=== PATIENT | male | born 1925 | race Caucasian/White ===

== ENCOUNTER → 2016-10-10 | Day surgery (SDC) | payer OTHER ==
[~2016-10-10] MED LIST: ACETAMINOPHEN 1000 MG/100 ML VIAL IV ONE; BALANCED SALT SOLN OPHT IRRIG 15 ML BTL ONE; BUPIVACAINE/EPINEPHRINE 0.25% PF 10 ML VIAL ONE; CARV12.5 PO; CARV6.252 PO; CEFT500T3 PO; DORZ1SOL2 RIGHT EYE; DORZ2SOL RIGHT EYE; FLON0.053; FLUT50SP EACH NARE; FURO1TAB60 PO; HYDR12.56 PO; ICAPCAP PO; ICAPTAB PO; LACTATED RINGER'S 1000 ML INJ 1,000 ML ONE; LIDOCAINE 1%/EPINEPHrine 1:100,000 SOLN 20 ML VIAL ONE; LISI-515 PO; LISI-591 PO; MECL-62 PO; NEOMYCIN/POLYMYXIN/BACITRACIN OINT 15 GM TUBE ONE; OMEP20TA PO; POTA-88 PO; PROPOFOL 200 MG/20 ML AMP IV ONE; TEMA15CA PO; VANCOMYCIN 500 MG VIAL ONE; VITA100018 PO; VITA10003 PO
--- NOTE | 2016-10-10 13:38 | TN ---
cc: AYUSH CEJA M.D. DATE OF SURGERY 10/10/2016 PREOPERATIVE DIAGNOSIS Squamous cell carcinoma left jewish. POSTOPERATIVE DIAGNOSIS Squamous cell carcinoma left jewish. PROCEDURE Wide local excision resulting in a primary defect of 5 x 5-cm. The secondary defect is 5 x 12-cm. Reconstruction type tissue rearrangement. SURGEON Ayush Ceja MD ANESTHESIA LMA. I also utilized 20 cc of 1% lidocaine with epinephrine. ESTIMATED BLOOD LOSS Minimal. COMPLICATIONS None. PROCEDURE He was properly consented, marked properly, anesthetized, skin sterilized with Microcyn, sterile draping applied, local anesthetic infiltrated. Excision was done of this tumor including 0.5-cm margin throughout this area in the left jewish. It was sent to pathology for further analysis with a 12 o'clock suture. Defect is now 5 x 5 cm. With this I proceeded to perform the undermining from the lateral frontalis muscle and on the left side of the jewish/cheek at the preauricular area and elevated the tissue to cover the defect as a tissue rearrangement reconstruction, inset it utilizing 3-0 Monocryl suture and 5-0 fast-absorbing gut totaling 85cm. Overall good viability of the tissue was noted at the end of the case. For dressings I utilized Xeroform gauze, bacitracin ointment, 4x4s and netting. Good viability of tissue was noted of the end of the case. The patient was awakened and extubated in the operating room, transported back to the Post-Anesthesia Care Unit in stable condition. No complications appreciated. The patient tolerated the procedure fairly well. MD GLEN Evans/GATO /1:15 PM /1:31 PM DIANA
== END | disposition home or self-care (01) ==
LOC: ESDC 09:34
PROVIDERS: ATTEND Plastic Surgery
DX: C44.329 Squamous cell carcinoma of skin of other parts of face (principal)
CPT/HCPCS: 00300; 14301; 88305; J0131; J3010; J3370; J7120

== ENCOUNTER 2016-12-07 16:04 | Inpatient (IN) | payer OTHER, MEDICARE ==
[~2016-12-07] VITALS: Ht 175.3 cm; Wt 75.3 kg
[2016-12-07] VITALS (8 sets, daily range): BP systolic 120–187; BP diastolic 66–97; PULSE 75–101; RESP 16–20; TEMP 98–100.9; O2SAT 94–97
[~2016-12-07 16:04] MED LIST changes: -ACETAMINOPHEN 1000 MG/100 ML VIAL IV ONE; -BALANCED SALT SOLN OPHT IRRIG 15 ML BTL ONE; -BUPIVACAINE/EPINEPHRINE 0.25% PF 10 ML VIAL ONE; -CARV12.5 PO; -CARV6.252 PO; -CEFT500T3 PO; -DORZ2SOL RIGHT EYE; -FLUT50SP EACH NARE; -FURO1TAB60 PO; -ICAPTAB PO; -LACTATED RINGER'S 1000 ML INJ 1,000 ML ONE; -LIDOCAINE 1%/EPINEPHrine 1:100,000 SOLN 20 ML VIAL ONE; -LISI-515 PO; -MECL-62 PO; -NEOMYCIN/POLYMYXIN/BACITRACIN OINT 15 GM TUBE ONE; -OMEP20TA PO; -POTA-88 PO; -PROPOFOL 200 MG/20 ML AMP IV ONE; -TEMA15CA PO; -VANCOMYCIN 500 MG VIAL ONE; -VITA10003 PO
[2016-12-07] MEDS ORDERED: LEVOFLOXACIN 750 MG PREMIX INJ 150 ML IV STA (16:12)
[2016-12-07] MEDS ORDERED: IBUPROFEN 800 MG TAB PO ONE (16:15)
[2016-12-07] MEDS ORDERED: ONDANSETRON HCL 4 MG/2 ML VIAL IV PRN (16:15)
[2016-12-07] MEDS ORDERED: RESP: ALBUTEROL 2.5 MG/IPRATROPIUM 0.5 MG NEB (SCH) INH ONE (16:15)
--- NOTE | 2016-12-07 16:22 | PD ---
HPI Chief Complaint: prod cough for 3 days Time Seen by Provider: 16:07 Travel History International Travel<30 days: No Contact w/Intl Traveler<30days: No History of Present Illness HPI PATIENT HAS HAD PROD COUGH FOR 3 DAYS, PER DASH[facility] NOW FEBRILE, PT IS ON INDEPENDANT SIDE....DENIES FAIR/CP/ABD PAIN/N/V/D PFSH Past Medical History Arthritis: Yes Diminished Hearing: No Hypertension: Yes Past Surgical History Abdominal Surgery: Yes Cardiac Surgery: Yes Cholecystectomy: Yes Ear Surgery: No Endocrine Surgery: No Eye Surgery: Yes (MACULAR DEGENERATION) Genitourinary Surgery: No Gynecologic Surgery: No Joint Replacement: Yes (LEFT HIP) Thoracic Surgery: No Other Surgery: Yes (INGUINAL HERNIA REPAIR) Social History Alcohol Use: Yes (OCC) Tobacco Use: Yes Substance Use: No Allergies-Medications (Allergen,Severity, Reaction): Coded Allergies: Penicillin (Verified Allergy, Severe, bruised very easily,weight loss, 06/04) Reported Meds & Prescriptions Reported Meds & Active Scripts Active Reported Omeprazole 20 Mg Tab 20 Mg PO DAILY Dorzolamide Opth Drops (Dorzolamide HCl) 2% Soln 1 Drop RIGHT EYE BID Lasix (Furosemide) 40 Mg Tab 40 Mg PO DAILY Lisinopril 20 Mg Tab 20 Mg PO BID Vitamin D-3 (Cholecalciferol) 1,000 Unit Tab 1,000 Units PO DAILY Fluticasone Nasal [place] 50 Mcg/Act Naspr 50 Mcg EACH NARE DAILY 50 mcg/spray Klor-Con M10 (Potassium Chloride Microencaps) 10 Meq Tab 10 Meq PO THREE TIMES PER WEEK Review of Systems Except as stated in HPI: all other systems reviewed are Neg General / Constitutional: Positive: Fever, Chills Respiratory: Positive: Cough Physical Exam Narrative GENERAL: SKIN: Warm and dry. HEAD: Atraumatic. Normocephalic. EYES: Pupils equal and round. No scleral icterus. No injection or drainage. ENT: No nasal bleeding or discharge. Mucous membranes pink and moist. NECK: Trachea midline. No JVD. CARDIOVASCULAR: REGULAR RHYTHM, MILD TACHY, NO R/M/G RESPIRATORY: No accessory muscle use. RONCHI PRESENT, GOOD TV, PULSE OX 95 GASTROINTESTINAL: Abdomen soft, non-tender, nondistended. Hepatic and splenic margins not palpable. MUSCULOSKELETAL: Extremities without clubbing, cyanosis, or edema. No obvious deformities. NEUROLOGICAL: Awake and alert. No obvious cranial nerve deficits. Motor grossly within normal limits. Five out of 5 muscle strength in the arms and legs. Normal speech. PSYCHIATRIC: Appropriate mood and affect; insight and judgment normal. Data Data Orders Complete Blood Count With Diff (12/07/16 16:12) Comprehensive Metabolic Panel (12/07/16 16:12) Prothrombin Time / Inr (Pt) (12/07/16 16:12) Act Partial Throm Time (Ptt) (12/07/16 16:12) Lactic Acid Sepsis Protocol (12/07/16 16:12) Troponin I (12/07/16 16:12) Urinalysis - C+S If Indicated (12/07/16 16:12) Influenzae A/B Antigen (12/07/16 16:12) Blood Culture (12/07/16 16:12) Chest, Single Ap (12/07/16 16:12) Blood Glucose (12/07/16 16:12) Ecg Monitoring (12/07/16 16:12) Iv Access Insert/Monitor (12/07/16 16:12) Oximetry (12/07/16 16:12) Oxygen Administration (12/07/16 16:12) Levofloxacin 750 Mg Premix Inj (Levaquin (12/07/16 16:12) Albuterol-Ipratropium Neb (Duoneb Neb) (12/07/16 16:15) Ibuprofen (Motrin) (12/07/16 16:15) Ondansetron Inj (Zofran Inj) (12/07/16 16:15) Admit Order (Ed Use Only) (12/07/16 19:02) [facility] Medical Decision Making Medical Screen Exam Complete: Yes Emergency Medical Condition: Yes Medical Record Reviewed: Yes Differential Diagnosis SEPSIS SOURCE TO BE DETERMINED (UTI VS PNA) Narrative Course sirs criteria met, source likely to be pulmonary awaiting results, will admit for obs Sepsis Criteria SIRS Criteria (2 or more): Temp > 100.9 or < 96.8, Heart rate over 90 Criteria Outcome: Meets SIRS criteria Diagnosis Primary Impression: Community acquired pneumonia Admitting Information Admitting Physician Requests: Admit Scripts Cefuroxime (Ceftin)500 Mg [id number] Mg PO Q12HR #6 TAB Prov:Sebastien Avila MD 12/11/16 Carvedilol (Coreg)12.5 Mg Tab12.5 Mg PO BID #60 TAB Prov:Sebastien Avila MD 12/11/16 Preston Malagon MD December 07, 2016 16:22
--- NOTE | 2016-12-07 16:33 | RADRPT ---
EXAM DATE/TIME: 12/07/2016 16:20 [facility] COMPARISON: CHEST SINGLE AP, December 31, 2012, 12:20. INDICATIONS : Cough. flu like symptoms, short of breath. MEDICAL HISTORY : None. SURGICAL HISTORY : None. ENCOUNTER: Initial ACUITY: 1 day PAIN SCORE: 0/10 LOCATION: Bilateral chest FINDINGS: A single view of the chest demonstrates the lungs to be symmetrically aerated without evidence of mas s, or infiltrate. Small right-sided pleural effusion The cardiomediastinal contours are unremarkable . Osseous structures are intact. CONCLUSION: Normal examination except for small right-sided pleural effusion. Judah Bahena MD on December 07, 2016 at 16:31 Board Certified Radiologist. This report was verified electronically.
[2016-12-07 17:17] LABS: AUTOMATED NEUTROPHIL # 11.1 TH/MM3 (1.8-7.7); BASOPHIL % 0.3 % (0.0-2.0); HEMATOCRIT 35.2 % (39.0-51.0); HEMO FLAGS DIFF FINAL; LYMPHOCYTE # 0.5 TH/MM3 (1.0-4.8); MEAN CELL VOLUME 88.5 FL (80.0-100.0); MEAN CORPUSCULAR HEMOGLOBIN 29.9 PG (27.0-34.0); MEAN CORPUSCULAR HGB CONC 33.8 % (32.0-36.0); MONO % 4.7 % (0.0-8.0); PLATELET COUNT 117 TH/MM3 (150-450); RED BLOOD COUNT 3.98 MIL/MM3 (4.50-5.90); RED CELL DISTRIBUTION WIDTH 17.1 % (11.6-17.2); WHITE BLOOD COUNT 12.2 TH/MM3 (4.0-11.0)
[2016-12-07 17:21] LABS: INTERNATIONAL NORMALIZED RATIO 1.1 RATIO; PROTHROMBIN TIME - PATIENT 12.6 SEC (9.8-11.6)
[2016-12-07 17:32] LABS: ANION GAP 12 MEQ/L (5-15); AST (GOT) 24 U/L (15-37); BICARBONATE 24.2 MEQ/L (21.0-32.0); BLOOD UREA NITROGEN 40 MG/DL (7-18); CHLORIDE 108 MEQ/L (98-107); GLOMERULAR FILTRATION RATE 25 ML/MIN (>89); POTASSIUM 3.9 MEQ/L (3.5-5.1); SODIUM (NA) 144 MEQ/L (136-145)
[2016-12-07 17:37] LABS: ALKALINE PHOSPHATASE 104 U/L (45-117); ALT (GPT) 23 U/L (12-78); TOTAL BILIRUBIN ADULT 1.1 MG/DL (0.2-1.0)
[2016-12-07 18:28] LABS: BLOOD, URINE MOD (NEG); GLUCOSE,URINE NEG (NEG); KETONE, URINE NEG (NEG); MUCUS URINE FEW /lpf (OCC); NITRITE,URINE NEG (NEG); SQUAMOUS EPITHELIAL CELL URINE <1 /hpf (0-5); URINE COLOR YELLOW (YELLW/STRAW)
[2016-12-07 18:29] LABS: COMMENT (UR) CATH-CULT NOT IND; CULTURE IF INDICATED CATH CULTURE NOT IND
[2016-12-07] MEDS ORDERED: TEMA15CA PO (19:02)
[2016-12-07] MEDS ORDERED: CARV6.252 PO (19:04)
[2016-12-07] MEDS ORDERED: POTA-88 PO (19:04)
[2016-12-07] MEDS ORDERED: MECL-62 PO (19:04)
[2016-12-07] MEDS ORDERED: LISI-515 PO (19:08)
[2016-12-07] MEDS ORDERED: DORZ2SOL RIGHT EYE (19:08)
[2016-12-07] MEDS ORDERED: OMEP20TA PO (19:08)
[2016-12-07] MEDS ORDERED: VITA10003 PO (19:08)
[2016-12-07] MEDS ORDERED: FURO1TAB60 PO (19:08)
[2016-12-07] MEDS ORDERED: FLUT50SP EACH NARE (19:08)
[2016-12-07] MEDS ORDERED: SENNOSIDES 8.6 MG TAB PO PRN (19:30)
[2016-12-07] MEDS ORDERED: NALOXONE HCL 0.4 MG/ML AMP IV PRN (19:30)
[2016-12-07] MEDS ORDERED: ACETAMINOPHEN 325 MG TAB PO PRN (19:30)
[2016-12-07] MEDS ORDERED: ONDANSETRON HCL 4 MG/2 ML VIAL IVP PRN (19:30)
[2016-12-07] MEDS ORDERED: SODIUM CHLORIDE 0.9% FLUSH 10 ML FLUSH IV FLUSH PRN (19:30)
[2016-12-07] MEDS: SODIUM CHLORIDE 0.9% FLUSH 10 ML FLUSH IV FLUSH SCH (20:54)
--- NOTE | 2016-12-07 21:16 | HHI.HP ---
[facility] Korin Murdock MD Admission Diagnosis NONSTEMI/EARLY PNEUMONIA/RENAL INSUFFICIENCY Diagnoses: Travel History International Travel<30 Days: No Contact w/Intl Traveler <30 Da: No Traveled to Known Affected Are: No History of Present Illness History from patient, ER physician communication, and review of medical records. Patient reported that he came to the hospital because he just has not been eating for past 2 days. He states that he has no appetite. He reports that he was also having some trouble breathing but he cannot be sure. He states that when he came to emergency room, he was given nebulizer treatments and this helped. He stated this was the only time he was able to sleep after the nebulizer treatment in ER. He also reports of urinating all the time. He stated he was taking water pills. He states that he is taking water pill because there was one time that he came to the emergency room because of shortness of breath and upper and lower extremity swelling for which she was prescribed this water pill. After that, he states he was much better. Patient then reports of cough after eating food. He stated he has been having sore throat for the past 2 days. He states yesterday he just was not able to talk at all. He was also having some nosebleeds yesterday. However reports of chronic runny nose for which she had some surgery done for the sinuses years ago. He is standing, he still continues to have these sinus symptoms. He denies any nausea or vomiting. He also does not have any burning or pain on urination. He however does have constipation. He states he usually has good appetite. Patient denies any dizziness or syncopal episodes. He reports of a fall yesterday at nighttime twice. He states this happened because it was dark in the room and he pressed wrong button for some reason. He reports he has some bad knees and when she fell, he is not able to get up. No chest pains. He denies dizziness at present but reports prior history of it for which he takes meclizine when necessary. Review of Systems Except as stated in HPI: all other systems reviewed are Neg Past Family Social History Past Medical History htn hepatitis when he was discharged from service macular degeneration BPH Past Surgical History sinus sx left temporal skin ca removal back sx hip sx double hernia sx cholecystectomy Allergies: Coded Allergies: Penicillin (Verified Allergy, Severe, bruised very easily,weight loss, 06/04) Family History mom and sister- macular degeneration brother - leukemia Social History still drives no drinking/ no smoking/ no etoh HALFWAY for 3 months due to Physical Exam Vital Signs Vital Signs Date Time Temp Pulse Resp B/P Pulse Ox O2 Delivery O2 Flow Rate FiO2 12/07/16 19:02 84 17 94 Room Air 12/07/16 18:59 98.5 90 17 120/66 94 Room Air 12/07/16 18:24 99.1 90 16 171/94 96 Room Air 12/07/16 17:35 94 21 12/07/16 17:33 97 Room Air 12/07/16 17:27 93 16 182/88 97 12/07/16 16:30 75 187/82 97 Room Air 12/07/16 16:30 97 Room Air 12/07/16 16:30 97 Room Air 12/07/16 16:17 100.9 101 16 180/97 Physical Exam GENERAL: This is a well-nourished, well-developed patient, in no apparent distress. SKIN: No rashes, ecchymoses or lesions. Cool and dry. HEAD: Atraumatic. Normocephalic. No temporal or scalp tenderness. EYES: No scleral icterus. No injection or drainage. ENT: Nose without bleeding, purulent drainage or septal hematoma. Airway patent. NECK: Trachea midline. No JVD CARDIOVASCULAR: Regular rate and rhythm without murmurs, gallops, or rubs. RESPIRATORY: Clear to auscultation. Breath sounds equal bilaterally. No wheezes , rales, or rhonchi. GASTROINTESTINAL: Abdomen soft, non-tender, nondistended. No guarding. MUSCULOSKELETAL: Extremities without clubbing, cyanosis, or edema. No calf tenderness. NEUROLOGICAL: Awake and alert.Motor and sensory grossly within normal limits. . Normal speech. Laboratory Laboratory Tests Test 12/07/16 12/07/16 16:50 18:10 White Blood Count 12.2 Red Blood Count 3.98 Hemoglobin 11.9 Hematocrit 35.2 Mean Corpuscular Volume 88.5 Mean Corpuscular Hemoglobin 29.9 Mean Corpuscular Hemoglobin 33.8 Concent Red Cell Distribution Width 17.1 Platelet Count 117 Mean Platelet Volume 8.1 Neutrophils (%) (Auto) 91.0 Lymphocytes (%) (Auto) 4.0 Monocytes (%) (Auto) 4.7 Eosinophils (%) (Auto) 0.0 Basophils (%) (Auto) 0.3 Neutrophils # (Auto) 11.1 Lymphocytes # (Auto) 0.5 Monocytes # (Auto) 0.6 Eosinophils # (Auto) 0.0 Basophils # (Auto) 0.0 CBC Comment DIFF FINAL Differential Comment Prothrombin Time 12.6 Prothromb Time International 1.1 Ratio Activated Partial 32.0 Thromboplast Time Sodium Level 144 Potassium Level 3.9 Chloride Level 108 Carbon Dioxide Level 24.2 Anion Gap 12 Blood Urea Nitrogen 40 Creatinine 2.41 Estimat Glomerular Filtration 25 Rate Random Glucose 149 Lactic Acid Level 1.8 Calcium Level 8.6 Total Bilirubin 1.1 Aspartate Amino Transf 24 (AST/SGOT) Alanine Aminotransferase 23 (ALT/SGPT) Alkaline Phosphatase 104 Troponin I 0.31 Total Protein 6.4 Albumin 3.3 Urine Color YELLOW Urine Turbidity CLEAR Urine pH 6.0 Urine Specific [place] 1.016 Urine Protein 300 Urine Glucose (UA) NEG Urine Ketones NEG Urine Occult Blood MOD Urine Nitrite NEG Urine Bilirubin NEG Urine Urobilinogen LESS THAN 2.0 Urine Leukocyte Esterase NEG Urine RBC 18 Urine WBC LESS THAN 1 Urine Squamous Epithelial <1 Cells Urine Mucus FEW Microscopic Urinalysis Comment CATH-CULT NOT IND Date/Time Procedure Status Source Growth 12/07/16 17:05 Aerobic Blood Culture Received Blood Peripheral Pending 12/07/16 17:05 Anaerobic Blood Culture Received Blood Peripheral Pending 12/07/16 16:51 Influenza Types A,B Antigen (ALEX) - Final Complete Nasal Aspirate NEGATIVE FOR FLU A AND B ANTIGEN.... Result Diagram: 12/07/16 1650 12/07/16 1650 Imaging Last 48 hours Impressions Chest X-Ray 12/07/16 1612 Signed Impressions: Service Date/Time: November 16:20 - CONCLUSION: Normal examination except for small right-sided pleural effusion. Judah Bahena MD Assessment and Plan Assessment and Plan Impression: Nonspecific complaints of malaise/cough/sore throatetiology unclear. Likely upper airway infection. Fever of 102 her assisted living facility notes. Does have fever of 100.9 here. Acute on chronic kidney injurysecondary to dehydration Elevated troponinno complaints of chest pains. We'll rule out. Also could be related to renal dysfunction. Thrombocytopenia htn hepatitis when he was discharged from service macular degeneration BPH Plan: Patient had influenza test done which was negative. Chest x-raypersonally reviewed. No evidence of infiltrates/pneumothorax/ pleural effusion. Also would check for strep antigen. Empiric coverage with antibiotics for CAP IV hydration. We'll follow renal function. Serial cardiac enzymes and EKGs. Patient's troponin elevation is likely due to renal insufficiency. Patient does not have any chest pains or dyspnea on exertion. dVT prophylaxis with scd Discussed Condition With patient, ER MD, patient's nurse Brittnai Uribe MD December 07, 2016 21:16
[2016-12-08] VITALS (7 sets, daily range): BP systolic 112–190; BP diastolic 58–102; PULSE 73–95; RESP 16–20; TEMP 97.6–98.4; O2SAT 93–98
[2016-12-08 05:50] LABS: AUTOMATED NEUTROPHIL # 6.2 TH/MM3 (1.8-7.7); BASOPHIL # 0.1 TH/MM3 (0-0.2); EOSINOPHIL % 0.5 % (0.0-4.0); HEMATOCRIT 31.2 % (39.0-51.0); LYMPH % 13.4 % (9.0-44.0); LYMPHOCYTE # 1.1 TH/MM3 (1.0-4.8); MEAN CORPUSCULAR HEMOGLOBIN 30.8 PG (27.0-34.0); MEAN CORPUSCULAR HGB CONC 34.6 % (32.0-36.0); MONO % 11.9 % (0.0-8.0); NEUT % 73.2 % (16.0-70.0); PLATELET COUNT 93 TH/MM3 (150-450); RED CELL DISTRIBUTION WIDTH 17.4 % (11.6-17.2); WHITE BLOOD COUNT 8.5 TH/MM3 (4.0-11.0)
[2016-12-08 05:54] LABS: HEMO FLAGS AUTO DIFF
[2016-12-08 06:29] LABS: BICARBONATE 25.3 MEQ/L (21.0-32.0)
[2016-12-08 07:00] LABS: PLATELET ESTIMATE SMEAR LOW (NORMAL); PLATELET MORPHOLOGY NORMAL (NORMAL); SCAN/DIFF AUTO DIFF CONFIRMED
[2016-12-08] MEDS: AZITHROMYCIN 250 MG TAB PO SCH (08:43)
[2016-12-08] MEDS: cefTRIAXone INJ 1,000 MG in SODIUM CHLORIDE 0.9% INJ 100 ML IV SCH (08:43)
[2016-12-08] MEDS: SODIUM CHLORIDE 0.9% FLUSH 10 ML FLUSH IV FLUSH SCH ×2 (08:54→20:42)
--- NOTE | 2016-12-08 16:49 | RADRPT ---
EXAM DATE/TIME: 12/08/2016 15:37 [facility] COMPARISON: No previous studies available for comparison. INDICATIONS : Abnormal labs. MEDICAL HISTORY : Macular degeneration. Hypertension. Arthritis. Hepatitis. SURGICAL HISTORY : Cholecystectomy. Eye surgery. Ateriovenous shunt. Pacemaker. Back surgery. Left total hip replace ment. Inguinal hernia repair. ENCOUNTER: Initial ACUITY: 1 day PAIN SCORE: 1/10 LOCATION: Bilateral flank MEASUREMENTS: RIGHT KIDNEY: 9.6 x 5.0 x 5.8 cm LEFT KIDNEY: 10.4 x 6.0 x 6.2 cm FINDINGS: The kidneys demonstrates increased echogenicity of the cortex compatible with medical renal disease. There is mild dilatation of the renal pelvis bilaterally. The prostate gland is markedly enlarged imp inging on the bladder base. CONCLUSION: 1. Prostate enlargement with minimal bilateral hydronephrosis. Echogenic kidneys bilaterally compatible with medical renal disease. Bob Diaz MD on December 08, 2016 at 16:46 Board Certified Radiologist. This report was verified electronically.
--- NOTE | 2016-12-08 17:26 | MB ---
cc: LITZY HARRISON MD DATE OF CONSULTATION: 12/08/2016 REASON FOR CONSULTATION: Elevated BUN and creatinine for evaluation. HISTORY OF PRESENT ILLNESS This is a 89-year-old male with past medical history of hypertension. Ischemic heart disease, benign prostatic hypertrophy, history of hepatitis, chronic kidney disease, came to the hospital with complaint of not eating well, generalized weakness, shortness of breath. Pain increased swelling of the legs. I was called to see the patient for elevated BUN and creatinine. The patient was found to have BUN of 14, creatinine of 2.4 on admission and it has been almost same. He previously has creatinine of 1.5-1.8 this was in 2012 and 2006. The patient denies seeing any filter press tender head he was seen by a urologist in the past and according to him he had Saenz catheter for some time it was more than 10 years ago. Then his urination improved and he has been without Saenz catheter. The patient has been feeling weak and tired for the last few days not eating well for last three 4 days has increased swelling of the legs. There is nausea but he has no vomiting. There is no history of diarrhea. No dysuria or hematuria but he has increased urinary frequency and sometime incontinence. Denies any dysuria, hematuria. Here in the hospital the patient was found to have also increased troponin from 0.3 to 0.4. He does not have any chest pain. PAST MEDICAL HISTORY: 1. Hypertension 2. Ischemic heart disease. 3. Hepatitis 4. Benign prostatic hypertrophy 5. Chronic kidney disease. PAST SURGICAL HISTORY 1. Cholecystectomy. 2. History of hip surgery 3. Back surgery. 4. Skin cancer removal 5. Bilateral hernia surgery 6. Sinus surgery. REVIEW OF SYSTEMS The patient has generalized weakness, feeling tired. He has decreased appetite, nausea. There is no vomiting has shortness of breath off and on. Has increased swelling of the legs. No abdominal pain. No history of diarrhea. There any chest pain. No palpitation. No dysuria, hematuria the patient occasionally has urinary incontinence and increased urinary frequency. SOCIAL HISTORY The patient is . is a nursing facility and he is also a living in a nursing facility. There is no history of smoking or alcoholism. FAMILY HISTORY: Family history is noncontributory. ALLERGIES PENICILLIN. MEDICATIONS Currently 1. Azithromycin 250 mg once a day. 2. Ceftriaxone 1 gram q. 24-hour. 3. Zofran as needed. 4. Narcan as needed. 5. He was given one dose of Ibuprofen. PHYSICAL EXAMINATION: IN GENERAL: On examination the patient is awake, alert. He is not in acute distress. VITAL SIGNS: Blood pressure is 141/76 temperature is 97.7, oxygen saturation 96-97% on room air. HEAD, EYES, EARS, NOSE, AND THROAT: Equally reacting to light. Nonicteric sclera, conjunctiva pale. NECK: Supple. The jugular venous distention is not elevated. LUNGS: The patient has bilateral good air entry with occasional wheezing and basilar rales. HEART: S1, S2, regular rhythm. ABDOMEN: The abdomen is soft lax. There is no tenderness. EXTREMITIES: He has mild edema in the legs. INVESTIGATIONS: WBC count is 8.5, hemoglobin 10.8, platelet count of 93, neutrophils 73.2%, sodium to 44. Potassium 4.0, chloride 109, bicarb 25.3, BUN 46, creatinine 2.59. Calcium 8.2. Troponin I 0.45, Aspartate aminotransferase and ALT normal, alkaline phosphatase 104, total protein 6.4. Albumin is 3.3, INR 1.1. Urinalysis showing protein of 300. Urine sodium is 39 and creatinine is 103. Cultures are all negative so far. IMAGING STUDIES The patient has ultrasound of the kidneys was done the report is pending. Chest x-ray Was done on admission and it shows a small right-sided pleural effusion. ASSESSMENT/PLAN 1. Chronic kidney disease with some possible acute kidney injury. 2. Ischemic heart disease and elevated troponins. 3. Hypertension. 4. Anemia. 5. History of benign prostatic hypertrophy. 6. The patient has elevated BUN and creatinine from before now he also has proteinuria and some hematuria. The patient will need to be seen by the urology for that. 7. In the meantime at present I will get the bladder scan postvoid to see if he has any significant postvoid residual then he will need a Saenz catheter. 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 8. I will also check the SAMI, ANCA and also serum protein electrophoresis and phosphorus level and CPK to look for any other cause of his renal disease. 9. Avoid any nephrotoxins especially nonsteroidal anti-inflammatory drug and contrast. Thank you for the consultation and I will follow the patient while he is in the hospital MD Brett Pool /4:04 PM /5:10 PM
[2016-12-08] MEDS: DORZOLAMIDE 2% OPTH SOLN 200 DROP/10 ML BTLO RIGHT EYE SCH (23:00)
[2016-12-08] MEDS: CARVEDILOL 6.25 MG TAB PO SCH (23:20)
--- NOTE | 2016-12-08 23:31 | HHI.PR ---
Subjective Remarks Patient seen this morning. Patient denies any chest pain or shortness of breath. He does report chronic worsening fatigue. He reports worsening of urinary retention, inability to completely empty his bladder. Objective Vital Signs Date Time Temp Pulse Resp B/P Pulse Ox O2 Delivery O2 Flow Rate FiO2 12/08/16 16:00 97.6 95 18 150/80 96 12/08/16 12:00 97.7 73 18 141/76 97 12/08/16 10:30 Room Air 12/08/16 08:00 97.6 76 18 141/75 96 12/08/16 04:00 98.2 75 20 125/70 98 12/08/16 00:00 98.4 75 16 112/58 93 I/O 12/07/16 12/07/16 12/07/16 12/08/16 12/08/16 12/08/16 07:00 15:00 23:00 07:00 15:00 23:00 Intake Total 120 ml 240 ml 540 ml Output Total 125 ml 300 ml Balance 120 ml 115 ml 240 ml Intake Oral 120 ml 240 ml 440 ml IV Total 100 ml Output Urine Total 125 ml 300 ml Bladder Scan Volume Amount 291 ml # Bowel Movements 1 Result Diagram: 12/08/1652312/08/16523 Objective Remarks GENERAL: patient lying in bed. Appears comfortable but fatigued.he is oriented 3. SKIN: Warm and dry. HEAD: Normocephalic. EYES: No scleral icterus. No injection or drainage. NECK: Supple, trachea midline. No JVD. CARDIOVASCULAR: Regular rate and rhythm without murmurs, gallops, or rubs. RESPIRATORY: Breath sounds equal bilaterally. No accessory muscle use. GASTROINTESTINAL: Abdomen soft, non-tender, nondistended. MUSCULOSKELETAL: No cyanosis, or edema. BACK: Nontender without obvious deformity. No CVA tenderness. A/P Assessment and Plan //Possible severe Sepsis on admission -Fever 100.9, tachycardia 101, leukocytosis 12.2 on admission, as well as chest x-ray with Small pleural effusion. Suspected JOSE EDUARDO. Creatinine 2.4 from baseline 1.5 -Continues on antibiotics. Negative strep, negative influenza. blood cultures no growth today. -Continue antibiotics ceftriaxone and Levaquin //Generalized malaise -could be secondary to sepsis, kidney failure.. TSH ordered and pending. //JOSE EDUARDO on CKD 3 //Urinary retention. Acute on chronic. Mild bilateral hydronephrosis. History of urinary obstruction, bph. Saenz placed. Nephrology consult and appreciate assistance. We'll monitor kidney function, patient will need follow-up urology as outpatient. -Saenz in place. creatinine not improving, however Saenz just placed 12/08. Continue to monitor urine output, creatinine.serology following. Appreciate assistance. //Community acquired pneumonia. //small pleural effusion which could be related to pneumonia, CHF. Will add BNP. If BnP elevated, will need echocardiogram. If CHF, this could be secondary to urinary retention. Follow-up results. //Elevated troponin, although patient is without chest pain. Uncertain why this was checked This could be secondary to CHF. //Elevated troponin. Without any chest pain. Possibly related to sepsis. //Prophylaxis. SCDs. Riki Sargent MD December 08, 2016 23:31
[2016-12-09] VITALS (7 sets, daily range): BP systolic 142–185; BP diastolic 67–94; PULSE 71–89; RESP 20; TEMP 97.8–98.7; O2SAT 94–98
[2016-12-09 07:43] LABS: BICARBONATE 21.4 MEQ/L (21.0-32.0); POTASSIUM 3.9 MEQ/L (3.5-5.1)
[2016-12-09 07:52] LABS: TOTAL PROTEIN SPE 6.4 GM/DL (6.0-7.6)
[2016-12-09] MEDS: FLUTICASONE PROPIONATE 50 MCG/ACT 16 GM NASAL SPRAY EACH NARE SCH (09:00)
[2016-12-09] MEDS: SODIUM CHLORIDE 0.9% FLUSH 10 ML FLUSH IV FLUSH SCH ×2 (09:02→21:32)
[2016-12-09] MEDS: DORZOLAMIDE 2% OPTH SOLN 200 DROP/10 ML BTLO RIGHT EYE SCH ×2 (09:02→21:33)
[2016-12-09] MEDS: cefTRIAXone INJ 1,000 MG in SODIUM CHLORIDE 0.9% INJ 100 ML IV SCH (09:02)
[2016-12-09] MEDS: CARVEDILOL 6.25 MG TAB PO SCH ×2 (09:03→21:32)
[2016-12-09] MEDS: AZITHROMYCIN 250 MG TAB PO SCH (09:03)
[2016-12-09] MEDS ORDERED: PNEUMOCOCCAL POLYVALENT INJ 25 MCG/0.5 ML SYR IM ONE (10:00)
--- NOTE | 2016-12-09 12:18 | HHI.NPPN ---
Subjective History of Present Illness 11-year-old male with past medical history of hypertension. Ischemic heart disease, benign prostatic hypertrophy, history of hepatitis, chronic kidney disease, came to the hospital with complaint of not eating well, generalized weakness, shortness of breath. Pain increased swelling of the legs. I was called to see the patient for elevated BUN and creatinine. The patient was found to have BUN of 14, creatinine of 2.4 on admission and it has been almost same. He previously has creatinine of 1.5-1.8 this was in 2012 and 2006. Additional Remarks Patient is alert, feeling weak, not eating well. Review of Systems General Constitutional: Fatigue Respiratory Lungs: SOB Cardiovascular Cardiac: RICHTER Objective Data Data 12/08/16 12/09/16 19:00 07:00 Intake Total 540 ml 940 ml Output Total 300 ml 775 ml Balance 240 ml 165 ml Intake Oral 440 ml 940 ml IV Total 100 ml Output Urine Total 300 ml 775 ml Bladder Scan Volume Amount 291 ml # Bowel Movements 1 0 Vital Signs Date Time Temp Pulse Resp B/P Pulse Ox O2 Delivery O2 Flow Rate FiO2 12/09/16 11:50 97.8 71 20 155/94 98 12/09/16 08:45 Room Air 12/09/16 07:50 98.0 82 20 152/82 94 12/09/16 07:47 77 12/09/16 04:09 Room Air 12/09/16 04:00 98.4 79 20 158/80 95 12/09/16 00:05 98.7 89 20 97 12/09/16 00:00 Room Air 12/08/16 22:30 170/86 12/08/16 20:40 Room Air 12/08/16 20:00 98.3 95 20 190/102 98 12/08/16 20:00 88 12/08/16 16:00 97.6 95 18 150/80 96 -: 12/08/16 0524 12/09/16 0652 Physical Exam General Appearance: No Acute Distress, Comfortable Eyes Eye Exam: Pupils Equal Throat Throat Exam: Oral Mucosa [place] & Moist Neck Neck Exam: Neck Supple Pulmonary Resp Exam: No Distress, Crackles, Rhonchi, Decreased Bases, Diminished Breath Sounds Cardiology CV Exam: Regular, Normal Sinus Rhythm Gastrointestinal/Abdomen GI Exam: Soft, Non-Tender, Bowel Sounds Present, Distended Neurologic Neuro Exam: Alert, Awake, Oriented Psychiatric Psych Exam: Appropriate Responses Assessment/Plan Assessment Summary: JOSE EDUARDO/Acute Renal Failure, CKD Stage IV Problem List: (1) Sepsis (2) Community acquired pneumonia (3) Elevated troponin (4) JOSE EDUARDO (acute kidney injury) (5) Stage 4 chronic kidney disease Plan Patient has been non oliguric. US kidneys noted. Now has Saenz's catheter. Urine out put is adequate. Continue antibiotics. Most likely has chronic kidney disease, due to Hypertensive or renovascular disease. Avoid Nephrotoxins. German Cabello MD December 09, 2016 12:18
--- NOTE | 2016-12-09 12:44 | HHI.PR ---
Subjective Remarks Patient seen for follow up sepsis, PNA, JOSE EDUARDO. 12/09/16-patient seen this AM. No acute events overnight. SBP in the 150s. Other vitals WNL. Objective Vitals Vital Signs Date Time Temp Pulse Resp B/P Pulse Ox O2 Delivery O2 Flow Rate FiO2 12/09/16 11:50 97.8 71 20 155/94 98 12/09/16 08:45 Room Air 12/09/16 07:50 98.0 82 20 152/82 94 12/09/16 07:47 77 12/09/16 04:09 Room Air 12/09/16 04:00 98.4 79 20 158/80 95 12/09/16 00:05 98.7 89 20 97 12/09/16 00:00 Room Air 12/08/16 22:30 170/86 12/08/16 20:40 Room Air 12/08/16 20:00 98.3 95 20 190/102 98 12/08/16 20:00 88 12/08/16 16:00 97.6 95 18 150/80 96 I/O 12/08/16 12/08/16 12/08/16 12/09/16 12/09/16 12/09/16 07:00 15:00 23:00 07:00 15:00 23:00 Intake Total 240 ml 540 ml 220 ml 720 ml Output Total 125 ml 300 ml 400 ml 375 ml Balance 115 ml 240 ml -180 ml 345 ml Intake Oral 240 ml 440 ml 220 ml 720 ml IV Total 100 ml Output Urine Total 125 ml 300 ml 400 ml 375 ml Bladder Scan Volume Amount 291 ml # Bowel Movements 1 0 0 Result Diagram: 12/08/16 0524 12/09/16 0652 Objective Remarks GENERAL: patient lying in bed. Appears comfortable but fatigued.he is oriented 3. SKIN: Warm and dry. HEAD: Normocephalic. EYES: No scleral icterus. No injection or drainage. NECK: Supple, trachea midline. No JVD. CARDIOVASCULAR: Regular rate and rhythm without murmurs, gallops, or rubs. RESPIRATORY: Breath sounds equal bilaterally. No accessory muscle use. Faint rales at right lung base. GASTROINTESTINAL: Abdomen soft, non-tender, nondistended. MUSCULOSKELETAL: No cyanosis. +1 pitting edema in LEs bilaterally. BACK: Nontender without obvious deformity. No CVA tenderness. A/P Problem List: (1) Sepsis ICD Code: A41.9 Status: Acute (2) Community acquired pneumonia ICD Code: J18.9 Status: Acute (3) Malaise ICD Code: R53.81 Status: Acute (4) JOSE EDUARDO (acute kidney injury) ICD Code: N17.9 Status: Acute (5) Elevated troponin ICD Code: R74.8 Status: Acute (6) Positive blood culture ICD Code: R78.81 Status: Acute Assessment and Plan //Possible severe Sepsis on admission -Fever 100.9, tachycardia 101, leukocytosis 12.2 on admission, as well as chest x-ray with Small pleural effusion. Lactic acid 1.8. -Continues on rocephin and azithromycin. Negative strep, negative influenza. -blood cultures + for coag neg staph in 1/ tubes. Likely contaminant. Will repeat. I am hesitant to add vancomycin, given potential for nephrotoxicity. Will consult ID. //Community acquired pneumonia. -small pleural effusion which could be related to pneumonia, CHF. BNP in the 800s. Will check 2D echo along with repeat CXR today and give lasix 40 mg IV x1 if worsening pleural effusion. -cont rocephin + azithromycin. -check sputum cx //JOSE EDUARDO on CKD 3 //Urinary retention. Acute on chronic. Mild bilateral hydronephrosis. History of urinary obstruction, bph. Saenz placed. Nephrology consult and appreciate assistance. We'll monitor kidney function, patient will need follow-up urology as outpatient. -Saenz in place. creatinine not improving, however Saenz just placed 12/08. Continue to monitor urine output, creatinine.serology following. Appreciate assistance. //Generalized malaise -could be secondary to sepsis, kidney failure.. TSH WNL. //Elevated troponin -although patient is without chest pain. Uncertain why this was checked This could be secondary to CHF. //Prophylaxis -SCDs. Problem Qualifiers (1) Sepsis: Qualified Code: A41.9 - Sepsis, due to unspecified organism Lc Barrientos MD R3 December 09, 2016 12:44
[2016-12-09] MEDS ORDERED: Vancomycin Consult Pharmacy 1 EA OTHER SCH (14:00)
[2016-12-09] MEDS ORDERED: VANCOMYCIN INJ 1,500 MG in SODIUM CHLORID 0.9% 500 ML INJ 500 ML IV SCH (14:00)
--- NOTE | 2016-12-09 14:39 | RADRPT ---
EXAM DATE/TIME: 12/09/2016 14:15 [facility] COMPARISON: CHEST SINGLE AP, December 07, 2016, 16:20. INDICATIONS : Shortness of breath, cough, and congestion. MEDICAL HISTORY : Hypertension. SURGICAL HISTORY : Cholecystectomy. ENCOUNTER: Subsequent ACUITY: 2 days PAIN SCORE: 0/10 LOCATION: Bilateral chest FINDINGS: Single AP view of the chest. Right-sided pleural effusion unchanged. Persistent right lower lobe pulm onary consolidation. No evidence of pneumothorax. Cardiomediastinal silhouette unchanged. CONCLUSION: No change in right lower lobe pulmonary consolidation and right pleural effusion. Krishan Lauren MD on December 09, 2016 at 14:37 Board Certified Radiologist. This report was verified electronically.
--- NOTE | 2016-12-09 16:08 | HHI.FPPN ---
Addendum to progress note ADDENDUM Reason for addendum: Additonal documentation Additional information Called by nursing regarding 8 beat run of Vtach. Patient reportedly asymptomatic. Per nursing, appears slower than typical for Vtach. Will order 12- lead EKG for now. Further workup if sustained VT or if patient is symptomatic. Lc Barrientos MD R3 December 09, 2016 16:08
[2016-12-10] VITALS (7 sets, daily range): BP systolic 142–198; BP diastolic 71–91; PULSE 63–87; RESP 18–20; TEMP 97.3–98.7; O2SAT 94–98
--- NOTE | 2016-12-10 07:28 | HHI.PR ---
Subjective Remarks Patient seen and examined this am. Nurse reports 9 beat run of V-Tach, patient asymptomatic. Had an 8 beat run yesterday, patient again asymptomatic. EKG was ordered that showed, which was normal rate, narrow QRS, no ST or T wave abnormalities. Overall improved from previous. He states his appetite is poor. Is supposed to see a pan cleaner but is unsure of the name. He states he has been unable to walk as far because [place] believes [place] 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 He denies current CP but states he doesn't feel right. Has a cough, is worse at night. Objective Vital Signs Date Time Temp Pulse Resp B/P Pulse Ox O2 Delivery O2 Flow Rate FiO2 12/10/16 06:00 97.8 71 20 185/85 98 12/10/16 04:04 Room Air 12/10/16 00:00 98.1 72 18 142/71 96 12/10/16 00:00 Room Air 12/09/16 20:00 Room Air 12/09/16 20:00 98.0 84 20 185/87 95 12/09/16 20:00 82 12/09/16 15:50 97.9 74 20 142/67 96 12/09/16 11:50 97.8 71 20 155/94 98 12/09/16 08:45 Room Air 12/09/16 07:50 98.0 82 20 152/82 94 12/09/16 07:47 77 I/O 12/09/16 12/09/16 12/09/16 12/10/16 12/10/16 12/10/16 07:00 15:00 23:00 07:00 15:00 23:00 Intake Total 720 ml 402 ml 240 ml Output Total 375 ml 550 ml 350 ml 350 ml Balance 345 ml -148 ml -110 ml -350 ml Intake Oral 720 ml 300 ml 240 ml IV Total 102 ml Output Urine Total 375 ml 550 ml 350 ml 350 ml # Bowel Movements 0 0 2 Result Diagram: 12/08/16 0524 12/09/16 0652 Imaging Last Impressions Chest X-Ray 12/09/16 0000 Signed Impressions: Service Date/Time: Friday, December 09, 2016 14:15 - CONCLUSION: No change in right lower lobe pulmonary consolidation and right pleural effusion. Krishan Lauren MD Renal Ultrasound 12/08/16 0000 Signed Impressions: Service Date/Time: Thursday, December 08, 2016 15:37 - CONCLUSION: 1. Prostate enlargement with minimal bilateral hydronephrosis. Echogenic kidneys bilaterally compatible with medical renal disease. Bob Diaz MD Other Results GENERAL: patient lying in bed. Appears comfortable. SKIN: Warm and dry. HEAD: Normocephalic. EYES: No scleral icterus. No injection or drainage. NECK: Supple, trachea midline. No JVD. CARDIOVASCULAR: Regular rate with irregular rhythm without murmurs, gallops, or rubs. RESPIRATORY: Breath sounds equal bilaterally. No accessory muscle use. Faint rales at right lung base. GASTROINTESTINAL: Abdomen soft, non-tender, nondistended. MUSCULOSKELETAL: No cyanosis. +1 pitting edema in LEs bilaterally. BACK: Nontender without obvious deformity. No CVA tenderness. A/P Problem List: (1) Sepsis ICD Code: A41.9 (2) Community acquired pneumonia ICD Code: J18.9 (3) JOSE EDUARDO (acute kidney injury) ICD Code: N17.9 (4) Heart failure ICD Code: I50.9 Assessment and Plan // Sepsis on admission, source lung - Improving. - Cont azithro (12/08-12/14) & ceftin (12/10-12/14) (per ID) - S/P rocephin 12/08-12/10 - Negative strep, negative influenza. -blood cultures + for coag neg staph in 1/4 tubes. Likely contaminant. Repeat cultures negative //Community acquired pneumonia. -small pleural effusion which could be related to pneumonia, CHF. BNP in the 800s. Will check 2D echo along with repeat CXR today and give lasix 40 mg IV x1 if worsening pleural effusion. -check sputum cx, pending //JOSE EDUARDO on CKD 3 //Urinary retention. Acute on chronic. Mild bilateral hydronephrosis. History of urinary obstruction, bph. Saenz placed. Nephrology consult and appreciate assistance. We'll monitor kidney function, patient will need follow-up urology as outpatient. -Saenz in place. creatinine not improving, however Saenz just placed 12/08. Continue to monitor urine output, nephrology following. Appreciate assistance. //Generalized malaise -could be secondary to sepsis, kidney failure.. TSH WNL. //Elevated troponin -although patient is without chest pain. Uncertain why this was checked, this could be secondary to CHF. //Systolic Heart Fail - BNP elevated - ECHO: moderate LVH, EF 35-40% - Currently on beta óscar, ACEI on hold for worsening renal insufficiency //HTN - Coreg increased to 12.5 mg BID - if continues to be elevated consider adding Norvasc - May consider lisinopril if renal function improves - Clonidine prn //Prophylaxis -SCDs. Discharge Planning D/C home pending negative blood cultures x 48 hrs and cardiology eval. Problem Qualifiers (1) Sepsis: Qualified Code: A41.9 - Sepsis, due to unspecified organism Nataliia Escobar MD R3 December 10, 2016 07:28
--- NOTE | 2016-12-10 07:46 | EC ---
Study Study Date:12/09/2016 STUDY CONCLUSIONS SUMMARY - Left ventricle: The cavity size was mildly dilated. Wall thickness was increased in a pattern of moderate LVH. Systolic function was moderately reduced. The estimated ejection fraction was in the range of 35% to 40%. Wall motion was normal; there were no regional wall motion abnormalities. - Aortic valve: Mild regurgitation. Valve area: 1.92cm^2 (Vmax). If LV function is below 40, please consider prescribing an ACEI or ARB or document rationale for non-use. PROCEDURE DATA STUDY STATUS: Elective. Procedure: Transthoracic echocardiography. Image quality was good. Scanning was performed from the parasternal, apical, and subcostal acoustic windows. Study completion: The patient tolerated the procedure well. Transthoracic echocardiography. M-mode, complete 2D, complete spectral Doppler, and color Doppler. Height: Height: 69in. Weight: Weight: 164.7lb. Body mass index: BMI: 24.4kg/m^2. Body surface area: BSA: 1.9m^2. Patient status: Inpatient. CARDIAC ANATOMY LEFT VENTRICLE: The cavity size was mildly dilated. Wall thickness was increased in a pattern of moderate LVH. Systolic function was moderately reduced. The estimated ejection fraction was in the range of 35% to 40%. Wall motion was normal; there were no regional wall motion abnormalities. AORTIC VALVE: Trileaflet; normal thickness leaflets. Doppler: Transvalvular velocity was within the normal range. There was no stenosis. Mild regurgitation. Valve area: 1.92cm^2 (Vmax). Indexed valve area: 1.01cm^2/m^2 (Vmax). AORTA: Aortic root: The aortic root was normal in size. MITRAL VALVE: Structurally normal valve. Doppler: Transvalvular velocity was within the normal range. There was no evidence for stenosis. No regurgitation. Valve area by pressure half-time: 5.64cm^2. Indexed valve area by pressure half-time: 2.97cm^2/m^2. Peak gradient: 3mm Hg (D). LEFT ATRIUM: The atrium was normal in size. RIGHT VENTRICLE: The cavity size was normal. Wall thickness was normal. PULMONIC VALVE: Doppler: Transvalvular velocity was within the normal range. There was no evidence for stenosis. No regurgitation. TRICUSPID VALVE: Structurally normal valve. Doppler: Transvalvular velocity was within the normal range. No regurgitation. Peak gradient: 18mm Hg (D). PULMONARY ARTERY: The main pulmonary artery was normal-sized. Systolic pressure was within the normal range. RIGHT ATRIUM: The atrium was normal in size. PERICARDIUM: There was no pericardial effusion. SYSTEMIC VEINS: Inferior vena cava: The vessel was normal in size. Patient weight: 164.7lb _Ejection fraction:_ 65-75% _Fractional shortening:_ 32% up to 5Kg 5-11.5Kg 11.6-22.9Kg 23-45Kg 45-57Kg Aortic Root 7-13 <17 13-22 17-27 17-27 LA diam 6-13 <23 24-38 33-47 37-40 RVID 10-17 7-15 7-15 7-18 8-17 LVIDd 12-22 <32 24-38 33-47 37-40 LVPW 2-4 3-6 5-7 6-8 7-8 IVS 2-4 3-6 5-7 6-8 7-8 BASIC MEASUREMENTS ADULT NORMAL Left ventricle Volume, ED, MOD, 1-plane 80 ml Volume, ES, MOD, 1-plane 49 ml Ejection fraction, MOD, 1-plane 39 % Stroke volume, MOD, 1-plane 31 ml Volume index, ED, MOD, 1-plane 42 ml/m^2 Volume index, ES, MOD, 1-plane 26 ml/m^2 Stroke index, MOD, 1-plane 16.3 ml/m^2 Aortic valve Leaflet separation 18 mm 15-26 Right ventricle RV internal dimension, ED, PLAX 24.8 mm 19-38 BASIC MEASUREMENTS ADULT NORMAL Left ventricle LV internal dimension, ED *57.6 mm 37-56 LV internal dimension, ES 48.6 mm Fractional shortening *16 % 29-45 LV posterior wall, ED *15.2 mm 6-11 Septal/posterior wall ratio, ED 1 Relative wall thickness, ED *0.53 <0.45 Volume, ED, Teichholz 164 ml Volume, ES, Teichholz 111 ml Ejection fraction, Teichholz *32.3 % 64-83 Stroke volume, Teichholz 53 ml Volume index, ED, Teichholz 86 ml/m^2 Volume index, ES, Teichholz 58 ml/m^2 Stroke index, Teichholz 27.9 ml/m^2 Wall mass 408.6 g Wall mass index 215 g/m^2 Mass/height 2.33 g/cm Ventricular septum Septal thickness, ED 15.2 mm Aortic valve Leaflet separation 18 mm 15-26 Aorta Root diameter, ED 35 mm 20-37 DOPPLER MEASUREMENTS ADULT NORMAL Aortic valve Peak velocity, S 138 cm/s Valve area, Vmax 1.92 cm^2 Valve area index, Vmax 1.01 cm^2/m^2 Regurgitant velocity, ED 281 cm/s Regurgitant deceleration 1670 cm/s^2 Regurgitant pressure half-time 492 ms Regurgitant gradient, ED 32 mm Hg Mitral valve Peak E-wave velocity 92.3 cm/s Peak A-wave velocity 44.9 cm/s Pressure half-time 39 ms Peak gradient, D 3 mm Hg Peak E/A ratio 2.1 Valve area, pressure half-time 5.64 cm^2 Valve area index, pressure half-time 2.97 cm^2/m^2 Tricuspid valve Peak gradient, D 18 mm Hg Maximal inflow velocity 215 cm/s Systemic veins Estimated CVP 10 mm Hg Pulmonic valve Peak velocity, S 112 cm/s LEGEND: Mean values are shown as u=mean value. Asterisk (*) mae values outside specified normal range. Prepared and signed by Mary Clements [id number]
[2016-12-10 08:52] LABS: AUTOMATED NEUTROPHIL # 6.8 TH/MM3 (1.8-7.7); BASOPHIL # 0.1 TH/MM3 (0-0.2); BASOPHIL % 0.8 % (0.0-2.0); EOSINOPHIL # 0.2 TH/MM3 (0-0.4); EOSINOPHIL % 1.8 % (0.0-4.0); HEMATOCRIT 37.3 % (39.0-51.0); HEMO FLAGS DIFF FINAL; LYMPH % 19.2 % (9.0-44.0); LYMPHOCYTE # 1.9 TH/MM3 (1.0-4.8); MEAN CELL VOLUME 87.8 FL (80.0-100.0); MEAN CORPUSCULAR HGB CONC 34.1 % (32.0-36.0); MONO % 8.9 % (0.0-8.0); NEUT % 69.3 % (16.0-70.0); PLATELET COUNT 141 TH/MM3 (150-450); RED BLOOD COUNT 4.25 MIL/MM3 (4.50-5.90); RED CELL DISTRIBUTION WIDTH 17.1 % (11.6-17.2); WHITE BLOOD COUNT 9.8 TH/MM3 (4.0-11.0)
--- NOTE | 2016-12-10 09:00 | PD.CONS ---
History of Present Illness Service Infectious disease Consult Requested By Dr Rich Barrientos Reason for Consult Evaluate patient with sepsis Primary Care Physician Korin Murdock MD Diagnoses: History of Present Illness Patient seen and examined. Records reviewed. Patient is an 89-year-old male admitted to the hospital because of generalized weakness. He has a lot of multiple complaints. Patient states that he has not been eating well, and has lost his appetite. He's had some trouble breathing, and has had a cough. He really couldn't say how long he has had the symptoms. He does not remember getting any fever or chills or night sweats. He denies any chest pain. Occasionally he would bring up some phlegm and it would be grayish. He's had some nausea but no vomiting. Denies any diarrhea. No abdominal pain. Patient has other complaints and notes that he urinates a lot, and has hesitancy. His urine flow is more of a trickle. He had been seeing a urologist in the past but missed his yearly appointment the last 2 years. Patient also has had arthritis in both knees, and has been taking Aleve. He use to golf frequently, but has not done that for the last 1 year. Patient last saw his primary care physician around September or October, and he apparently had some blood work done, but never heard the results of his blood work. Since admission patient has not had any fever. His white count was initially elevated. His creatinine was around 2.5. Previous to that he's had blood work from 4 years ago and his creatinine was between 1.5-1.7. Renal ultrasound showed some mild hydronephrosis, and some enlarged prostate. Bladder scan showed a volume of 290. Saenz catheter was placed. He shows a right base consolidation and small effusion. 2 blood cultures done on admission , 1 out of the 2 is growing staph. Patient currently states he is a little bit better than when he came in. His cough is a little bit looser but he is not always expectorating. He is currently on Rocephin and Zithromax. Infectious disease consultation has been requested to evaluate the patient. Review of Systems Constitutional: COMPLAINS OF: Fatigue, Change in appetite, DENIES: Fever, Chills, Night Sweats Eyes: DENIES: Eye pain Ears, nose, mouth, throat: COMPLAINS OF: Throat pain, Running Nose, DENIES: Nasal discharge, Oral lesions, Hoarseness, Ear Pain, Sinus Pain, Odynophagia Respiratory: COMPLAINS OF: Cough, Sputum production, Shortness of breath Cardiovascular: DENIES: Chest pain, Palpitations, Syncope Gastrointestinal: COMPLAINS OF: Nausea, DENIES: Abdominal pain, Diarrhea, Vomiting, Difficulty Swallowing Genitourinary: COMPLAINS OF: Urinary frequency, Urgency, Nocturia Musculoskeletal: COMPLAINS OF: Joint pain, Joint Swelling Integumentary: COMPLAINS OF: Rash, DENIES: Pruritus Hematologic/lymphatic: COMPLAINS OF: Bruising Immunologic/allergic: DENIES: Urticaria Neurologic: DENIES: Headache Psychiatric: DENIES: Confusion, Hallucinations Past Family Social History Allergies: Coded Allergies: Penicillin (Verified Allergy, Severe, bruised very easily,weight loss, 06/04) Past Medical History Hypertension Hepatitis when he was discharged from service Macular degeneration BPH Arthritis Past Surgical History Sinus surgery 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 Denies smoking Denies alcohol abuse Denies illicit drugs Physical Exam Vital Signs Vital Signs Date Time Temp Pulse Resp B/P Pulse Ox O2 Delivery O2 Flow Rate FiO2 12/10/16 06:00 97.8 71 20 185/85 98 12/10/16 04:04 Room Air 12/10/16 00:00 98.1 72 18 142/71 96 12/10/16 00:00 Room Air 12/09/16 20:00 Room Air 12/09/16 20:00 98.0 84 20 185/87 95 12/09/16 20:00 82 12/09/16 15:50 97.9 74 20 142/67 96 12/09/16 11:50 97.8 71 20 155/94 98 12/09/16 08:45 Room Air Physical Exam GENERAL: Patient is a well-nourished, well-developed elderly male, awake and alert, not in respiratory distress. SKIN: Warm and dry. Has scattered purpuric lesions in his BLE. Has keratosis jamila in both legs, and some in his trunk and UE. HEAD: Atraumatic. Normocephalic. No tenderness EYES: Lipan conjunctiva. No petechia or hemorrhage. Pupils equal, round and reactive to light. Extraocular movements full and intact. No scleral icterus. No injection or drainage. EARS, NOSE AND THROAT: Nose without bleeding or purulent nasal discharge. No sinus tenderness. Mucous membranes pink and moist. No oral lesions noted. No exudate. No oral thrush. NECK: Trachea midline. Supple and not tender, no meningeal signs CARDIOVASCULAR: Regular rate and rhythm. No murmurs, rubs or gallops heard. RESPIRATORY: Breath sounds equal bilaterally. No rales, wheezing or rhonchi. Decreased breath sounds on the right base. ABDOMEN: Soft, non-tender, nondistended. Bowel sounds present and normoactive. No guarding. No rebound. No organomegaly. EXTREMITIES: No clubbing, cyanosis. Mild pedal edema. Well perfused. No joint effusion, has good ROM. No calf tenderness. NEUROLOGICAL: Awake and alert. Cranial nerves grossly intact. Motor grossly within normal limits. PSYCHIATRIC: Normal affect, calm and cooperative. LINE: No evidence of infection Laboratory Date/Time Procedure Status Source Growth 12/09/16 15:50 Gram Stain - Final Resulted Sputum Expectorated Sputum 12/09/16 15:50 Sputum Culture Resulted Sputum Expectorated Sputum Pending 12/09/16 14:40 Aerobic Blood Culture Received Blood Peripheral Pending 12/09/16 14:40 Anaerobic Blood Culture Received Blood Peripheral Pending 12/08/16 04:30 Group A Streptococcus Screen - Preliminary Resulted Throat NO BETA STREPTOCOCCI ISOLATED AT 24 H... 12/08/16 04:30 Group A Streptococcus Screen (ALEX) - Final Complete Throat 12/07/16 17:05 Aerobic Blood Culture - Preliminary Resulted Blood Peripheral NO GROWTH IN 2 DAYS 12/07/16 17:05 Anaerobic Blood Culture - Preliminary Resulted Blood Peripheral NO GROWTH IN 2 DAYS 12/07/16 16:51 Influenza Types A,B Antigen (ALEX) - Final Complete Nasal Aspirate NEGATIVE FOR FLU A AND B ANTIGEN.... Result Diagram: 12/08/16 0524 12/09/16 0652 Imaging RADIOLOGY STUDIES/FILMS REVIEWED Chest X-Ray 12/09/16 0000 Signed Impressions: Service Date/Time: Sunday, December 09, 2016 14:15 - CONCLUSION: No change in right lower lobe pulmonary consolidation and right pleural effusion. Krishan Lauren MD Renal Ultrasound 12/08/16 0000 Signed Impressions: Service Date/Time: Thursday, December 08, 2016 15:37 - CONCLUSION: 1. Prostate enlargement with minimal bilateral hydronephrosis. Echogenic kidneys bilaterally compatible with medical renal disease. Bob Diaz MD Assessment and Plan Assessment and Plan IMPRESSION CAP, R Renal insufficiency - renal following - likely NSAID adding to his problem as well as his BPH, and problem emptying/retention One (+) BC with Coag Neg Staph C/W contaminant RECOMMENDATION Continue Rx for his CAP - will change to po Abx and give 7 days Rx No need to Rx the one (+) BC Patient being eval by renal Prob will need to have urology follow-up for his BPH He looks clinically stable from ID standpoint I will be available prn Please call if there are any other ID issue or concerns Thank you for this consultation Discussed Condition With Explained plan to the patient Kylah Wise MD December 10, 2016 09:00
[2016-12-10] MEDS: CARVEDILOL 6.25 MG TAB PO SCH (09:05)
[2016-12-10] MEDS: SODIUM CHLORIDE 0.9% FLUSH 10 ML FLUSH IV FLUSH SCH ×2 (09:05→21:00)
[2016-12-10] MEDS: DORZOLAMIDE 2% OPTH SOLN 200 DROP/10 ML BTLO RIGHT EYE SCH ×2 (09:05→21:00)
[2016-12-10] MEDS: AZITHROMYCIN 250 MG TAB PO SCH (09:07)
[2016-12-10 09:22] LABS: BICARBONATE 24.7 MEQ/L (21.0-32.0); POTASSIUM 3.8 MEQ/L (3.5-5.1)
[2016-12-10] MEDS: CEFUROXIME AXETIL 500 MG TAB PO SCH ×2 (10:41→21:00)
[2016-12-10] MEDS: FLUTICASONE PROPIONATE 50 MCG/ACT 16 GM NASAL SPRAY EACH NARE SCH (10:41)
--- NOTE | 2016-12-10 11:23 | HHI.NPPN ---
Subjective History of Present Illness 11-year-old male with past medical history of hypertension. Ischemic heart disease, benign prostatic hypertrophy, history of hepatitis, chronic kidney disease, came to the hospital with complaint of not eating well, generalized weakness, shortness of breath. Pain increased swelling of the legs. I was called to see the patient for elevated BUN and creatinine. The patient was found to have BUN of 14, creatinine of 2.4 on admission and it has been almost same. He previously has creatinine of 1.5-1.8 this was in 2012 and 2006. Additional Remarks Patient is alert, started eating better, no SOB. Review of Systems General Constitutional: Fatigue Respiratory Lungs: SOB Cardiovascular Cardiac: RICHTER Objective Data Data 12/09/16 12/10/16 18:59 06:59 Intake Total 402 ml 240 ml Output Total 550 ml 700 ml Balance -148 ml -460 ml Intake Oral 300 ml 240 ml IV Total 102 ml Output Urine Total 550 ml 700 ml # Bowel Movements 0 2 Vital Signs Date Time Temp Pulse Resp B/P Pulse Ox O2 Delivery O2 Flow Rate FiO2 12/10/16 08:50 Room Air 12/10/16 08:06 82 12/10/16 08:00 97.3 77 18 182/88 94 Automatic Cuff 12/10/16 06:00 97.8 71 20 185/85 98 12/10/16 04:04 Room Air 12/10/16 00:00 98.1 72 18 142/71 96 12/10/16 00:00 Room Air 12/09/16 20:00 Room Air 12/09/16 20:00 98.0 84 20 185/87 95 12/09/16 20:00 82 12/09/16 15:50 97.9 74 20 142/67 96 12/09/16 11:50 97.8 71 20 155/94 98 -: 12/10/16 0807 12/10/16 0807 Microbiology 12/09/16 Aerobic Blood Culture - Preliminary, Resulted NO GROWTH IN 1 DAY 12/09/16 Anaerobic Blood Culture - Preliminary, Resulted NO GROWTH IN 1 DAY 12/09/16 Aerobic Blood Culture - Preliminary, Resulted NO GROWTH IN 1 DAY 12/09/16 Anaerobic Blood Culture - Preliminary, Resulted NO GROWTH IN 1 DAY 12/09/16 Gram Stain - Final, Resulted 12/09/16 Sputum Culture, Resulted Pending Physical Exam General Appearance: No Acute Distress, Comfortable Eyes Eye Exam: Pupils Equal Throat Throat Exam: Oral Mucosa [place] & Moist Neck Neck Exam: Neck Supple Pulmonary Resp Exam: No Distress, Crackles, Rhonchi, Decreased Bases, Diminished Breath Sounds Cardiology CV Exam: Regular, Normal Sinus Rhythm Gastrointestinal/Abdomen GI Exam: Soft, Non-Tender, Bowel Sounds Present, Distended Neurologic Neuro Exam: Alert, Awake, Oriented Psychiatric Psych Exam: Appropriate Responses Assessment/Plan Assessment Summary: JOSE EDUARDO/Acute Renal Failure, CKD Stage IV Problem List: (1) Sepsis (2) Community acquired pneumonia (3) Elevated troponin (4) JOSE EDUARDO (acute kidney injury) (5) Stage 4 chronic kidney disease Plan Patient has been non oliguric. US kidneys noted. Now has Saenz's catheter. Urine out put is adequate. Continue antibiotics. Most likely has chronic kidney disease, due to Hypertensive or renovascular disease. Creatinine is stable, possibly at his baseline. Problem Qualifiers (1) Sepsis: Qualified Code: A41.9 - Sepsis, due to unspecified organism German Cabello MD December 10, 2016 11:23
--- NOTE | 2016-12-10 12:30 | MB ---
cc: SHYAM BRADY MD DATE OF CONSULTATION: 12/10/2016 REASON FOR CONSULTATION: V-tach HISTORY OF PRESENT ILLNESS Mr. Holm is an 89-year-old man who presented with generalized weakness. He does also have complaints of some edema and shortness of breath. Echocardiogram revealed an EF of 35%. The patient had some V-tach earlier this morning and cardiology was subsequently consulted. The patient was asymptomatic with this. He notes recently that he has not been eating well secondary to no appetite. He does report following with a lay out machine operator once a year but is not sure of the doctor's name. PAST MEDICAL HISTORY: Significant for: 1. Hypertension. 2. Hepatitis. 3. Macular degeneration 4. BPH. FAMILY HISTORY: Noncontributory. SOCIAL HISTORY: The patient does live in an [facility]. He does not smoke or drink. PHYSICAL EXAMINATION: VITAL SIGNS: 97.3, 77, 18, 182/88. GENERAL: He is a well-appearing man who is in no apparent distress. NECK: Free from JVD. LUNGS: Bibasilar rales. CARDIOVASCULAR: He has a normal S1-S2. I did not appreciate any murmurs, rubs, or gallops. ABDOMEN: Soft. EXTREMITIES: Trace amount of edema. Echocardiogram shows an EF of 35 to 40%. There is moderate LVH. LABORATORY VALUES: Significant for creatinine of 2.47. The troponin is 0.45 and BNP is 1048. IMPRESSION: VT - both episodes likely occurred while the patient was sleeping overnight, thus sleep apnea cannot be excluded. He has not had any episodes during the day. Nonetheless, he does have significant cardiomyopathy with an EF of 35%. I would restart the beta-blockade. We discussed further evaluation for an ischemia workup and the patient does not really think he is interested, given his advanced age and comorbid conditions. This is not unreasonable, particularly as his creatinine is over 2. Cardiomyopathy - again I will start the patient on low-dose beta blockade. He is not a candidate for ALLEN inhibitor secondary to his renal insufficiency. Acute systolic failure - as above. Fluid management will be per nephrology who has already consulted on the patient. Shyam Brady M.D. SHWETHA/BONNY /12:03 PM /12:23 PM
--- NOTE | 2016-12-10 16:59 | EKG ---
Date Performed: 12/09/2016 Time Performed: 16:44:37 PTAGE: 89 years EKG: Sinus rhythm WITH OCCASIONAL SUPRAVENTRICULAR PREMATURE COMPLEXES NONSPECIFIC T-WAVE ABNORMALITY BORDERLINE ECG PREVIOUS TRACING : 12/31/2012 12.37 Compared to prior tracing no significant change DOCTOR: Mary Clements Interpretating Date/Time 12/10/2016 16:58:38
[2016-12-10] MEDS: CARVEDILOL 12.5 MG TAB PO SCH (21:00)
[2016-12-11] VITALS: BP 151/77; PULSE 70; RESP 18; TEMP 97.9; O2SAT 98
[2016-12-11 04:00] VITALS: BP 178/82; PULSE 79; RESP 18; TEMP 98; O2SAT 93
[2016-12-11 08:01] VITALS: BP 176/87; PULSE 77; RESP 18; TEMP 98; O2SAT 95
[2016-12-11] MEDS: AZITHROMYCIN 250 MG TAB PO SCH (08:37)
[2016-12-11] MEDS: DORZOLAMIDE 2% OPTH SOLN 200 DROP/10 ML BTLO RIGHT EYE SCH (08:37)
[2016-12-11] MEDS: CARVEDILOL 12.5 MG TAB PO SCH (08:37)
[2016-12-11] MEDS: CEFUROXIME AXETIL 500 MG TAB PO SCH (08:37)
[2016-12-11] MEDS: SODIUM CHLORIDE 0.9% FLUSH 10 ML FLUSH IV FLUSH SCH (08:37)
[2016-12-11] MEDS: FLUTICASONE PROPIONATE 50 MCG/ACT 16 GM NASAL SPRAY EACH NARE SCH (08:37)
[2016-12-11 09:13] LABS: AUTOMATED NEUTROPHIL # 5.6 TH/MM3 (1.8-7.7); BASOPHIL # 0.1 TH/MM3 (0-0.2); EOSINOPHIL # 0.2 TH/MM3 (0-0.4); EOSINOPHIL % 2.1 % (0.0-4.0); HEMATOCRIT 33.8 % (39.0-51.0); HEMO FLAGS DIFF FINAL; LYMPH % 16.4 % (9.0-44.0); LYMPHOCYTE # 1.3 TH/MM3 (1.0-4.8); MEAN CELL VOLUME 87.3 FL (80.0-100.0); MEAN CORPUSCULAR HEMOGLOBIN 30.7 PG (27.0-34.0); MEAN CORPUSCULAR HGB CONC 35.1 % (32.0-36.0); NEUT % 72.5 % (16.0-70.0); PLATELET COUNT 116 TH/MM3 (150-450); RED BLOOD COUNT 3.88 MIL/MM3 (4.50-5.90); RED CELL DISTRIBUTION WIDTH 17.2 % (11.6-17.2); WHITE BLOOD COUNT 7.8 TH/MM3 (4.0-11.0)
[2016-12-11 09:35] LABS: BICARBONATE 24.2 MEQ/L (21.0-32.0); POTASSIUM 3.7 MEQ/L (3.5-5.1)
--- NOTE | 2016-12-11 10:57 | HHI.PR ---
Subjective Remarks Follow-up sepsis/acute on chronic systolic CHF 12/11/16-patient seen and examined, denies any chest pain or shortness of breath. No reported runs of V Tach overnight. Objective Vitals Vital Signs Date Time Temp Pulse Resp B/P Pulse Ox O2 Delivery O2 Flow Rate FiO2 12/11/16 08:01 98.0 77 18 176/87 95 12/11/16 04:00 Room Air 12/11/16 04:00 98.0 79 18 178/82 93 12/11/16 00:00 Room Air 12/11/16 00:00 97.9 70 18 151/77 98 12/10/16 20:00 81 12/10/16 20:00 Room Air 12/10/16 20:00 98.1 87 18 198/91 98 12/10/16 16:00 Room Air 12/10/16 16:00 98.7 80 20 166/83 97 12/10/16 12:00 98.4 63 18 155/72 95 Manual Cuff/Auscultation 12/10/16 12:00 Room Air I/O 12/10/16 12/10/16 12/10/16 12/11/16 12/11/16 12/11/16 06:59 14:59 22:59 06:59 14:59 22:59 Intake Total 722 ml 240 ml 50 ml Output Total 350 ml 850 ml 200 ml 500 ml Balance -350 ml -128 ml 40 ml -450 ml Intake Oral 720 ml 240 ml 50 ml IV Total 2 ml Output Urine Total 350 ml 850 ml 200 ml 500 ml # Bowel Movements 2 0 0 Result Diagram: 12/11/1680412/11/16804 Imaging Last Impressions Chest X-Ray 12/09/16 0000 Signed Impressions: Service Date/Time: Friday, December 09, 2016 14:15 - CONCLUSION: No change in right lower lobe pulmonary consolidation and right pleural effusion. Krishan Lauren MD Renal Ultrasound 12/08/16 0000 Signed Impressions: Service Date/Time: Thursday, December 08, 2016 15:37 - CONCLUSION: 1. Prostate enlargement with minimal bilateral hydronephrosis. Echogenic kidneys bilaterally compatible with medical renal disease. Bob Diaz MD Objective Remarks GENERAL: NAD SKIN: Warm and dry. HEAD: Normocephalic. EYES: No scleral icterus. No injection or drainage. NECK: Supple, trachea midline. No JVD or lymphadenopathy. CARDIOVASCULAR: Regular rate and rhythm without murmurs, gallops, or rubs. RESPIRATORY: Breath sounds equal bilaterally. No accessory muscle use. GASTROINTESTINAL: Abdomen soft, non-tender, nondistended. MUSCULOSKELETAL: No cyanosis, or edema. BACK: Nontender without obvious deformity. No CVA tenderness. A/P Problem List: (1) Sepsis ICD Code: A41.9 Status: Acute (2) Community acquired pneumonia ICD Code: J18.9 Status: Acute (3) Malaise ICD Code: R53.81 Status: Acute (4) JOSE EDUARDO (acute kidney injury) ICD Code: N17.9 Status: Acute (5) Elevated troponin ICD Code: R74.8 Status: Acute (6) Positive blood culture ICD Code: R78.81 Status: Acute Assessment and Plan 89-year-old man with 1- Sepsis on admission, source lung - Cont azithro (12/08-12/14) & ceftin (12/10-12/14) (per ID) - Negative strep, negative influenza. -blood cultures + for coag neg staph in 07/26 tubes. -Repeat blood culture negative to date 2-Community acquired pneumonia. -Continue with above antibiotics 3-JOSE EDUARDO on CKD 4 4-Urinary retention. Acute on chronic. Mild bilateral hydronephrosis. History of urinary obstruction, bph. Appreciate input from nephrology Continue Saenz in place and monitor BUN and creatinine 5-Generalized malaise Continue physical therapy 6-Elevated troponin ACS ruled out per protocol Appreciate input from cardiology 7-Systolic Heart Fail - BNP elevated - ECHO: moderate LVH, EF 35-40% - Currently on beta óscar, ACEI on hold for worsening renal insufficiency - Appreciate input from cardiology 8-HTN - Coreg 12.5 mg BID - Consider adding Norvasc 9-Prophylaxis -SCDs. Problem Qualifiers (1) Sepsis: Qualified Code: A41.9 - Sepsis, due to unspecified organism Sebastien Avila MD December 11, 2016 10:57
--- NOTE | 2016-12-11 11:47 | PD.CARD.PN ---
Subjective Subjective Remarks Pt without complaints, " I am going to rehab" Objective Medications Current Medications Medications (Trade) Dose Ordered Sig/Magnus Route Start Time Stop Time Status Last Admin (NS Flush) 2 ml UNSCH PRN IV FLUSH 12/07/16 19:30 (NS Flush) 2 ml BID IV FLUSH 12/07/16 21:00 12/11/16 08:37 (Tylenol) 650 mg Q4H PRN PO 12/07/16 19:30 (Zofran Inj) 4 mg Q6H PRN IVP 12/07/16 19:30 (Senokot) 17.2 mg Q12H PRN PO 12/07/16 19:30 (Narcan Inj) 0.4 mg UNSCH PRN IV 12/07/16 19:30 (Zithromax) 250 mg DAILY PO 12/08/16 09:00 12/14/16 23:00 12/11/16 08:37 (Trusopt 2% Opth Soln) 1 drop BID RIGHT EYE 12/08/16 23:00 12/11/16 08:37 (Flonase Charly Spr) 2 spray DAILY EACH NARE 12/09/16 09:00 12/11/16 08:37 (Ceftin) 500 mg Q12HR PO 12/10/16 10:00 12/14/16 09:59 12/11/16 08:37 (Coreg) 12.5 mg BID PO 12/10/16 21:00 12/11/16 08:37 Vital Signs / I&O Vital Signs Date Time Temp Pulse Resp B/P Pulse Ox O2 Delivery O2 Flow Rate FiO2 12/11/16 08:01 98.0 77 18 176/87 95 12/11/16 04:00 Room Air 12/11/16 04:00 98.0 79 18 178/82 93 12/11/16 00:00 Room Air 12/11/16 00:00 97.9 70 18 151/77 98 12/10/16 20:00 81 12/10/16 20:00 Room Air 12/10/16 20:00 98.1 87 18 198/91 98 12/10/16 16:00 Room Air 12/10/16 16:00 98.7 80 20 166/83 97 12/10/16 12:00 98.4 63 18 155/72 95 Manual Cuff/Auscultation 12/10/16 12:00 Room Air I/O 12/10/16 12/10/16 12/10/16 12/11/16 12/11/16 12/11/16 07:00 15:00 23:00 07:00 15:00 23:00 Intake Total 722 ml 240 ml 50 ml Output Total 350 ml 850 ml 200 ml 500 ml Balance -350 ml -128 ml 40 ml -450 ml Intake Oral 720 ml 240 ml 50 ml IV Total 2 ml Output Urine Total 350 ml 850 ml 200 ml 500 ml # Bowel Movements 2 0 0 Physical Exam GENERAL: Well developed, well nourished. No acute distress. HEENT: Jugular venous pressure is normal. CHEST: Lungs clear to auscultation bilaterally. Unlabored respiratory effort. CARDIAC: Regular rate and rhythm without S3, S4, or murmur. ABDOMEN: Soft, nontender, no hepatosplenomegaly. Bowel sounds present. EXTREMITIES: No clubbing, cyanosis, or edema. Laboratory Laboratory Tests Test 12/11/16 08:05 White Blood Count 7.8 TH/MM3 Red Blood Count 3.88 MIL/MM3 Hemoglobin 11.9 GM/DL Hematocrit 33.8 % Mean Corpuscular Volume 87.3 FL Mean Corpuscular Hemoglobin 30.7 PG Mean Corpuscular Hemoglobin 35.1 % Concent Red Cell Distribution Width 17.2 % Platelet Count 116 TH/MM3 Mean Platelet Volume 8.1 FL Neutrophils (%) (Auto) 72.5 % Lymphocytes (%) (Auto) 16.4 % Monocytes (%) (Auto) 8.0 % Eosinophils (%) (Auto) 2.1 % Basophils (%) (Auto) 1.0 % Neutrophils # (Auto) 5.6 TH/MM3 Lymphocytes # (Auto) 1.3 TH/MM3 Monocytes # (Auto) 0.6 TH/MM3 Eosinophils # (Auto) 0.2 TH/MM3 Basophils # (Auto) 0.1 TH/MM3 CBC Comment DIFF FINAL Differential Comment Sodium Level 141 MEQ/L Potassium Level 3.7 MEQ/L Chloride Level 107 MEQ/L Carbon Dioxide Level 24.2 MEQ/L Anion Gap 10 MEQ/L Blood Urea Nitrogen 44 MG/DL Creatinine 2.26 MG/DL Estimat Glomerular Filtration 27 ML/MIN Rate Random Glucose 89 MG/DL Calcium Level 8.5 MG/DL Assessment and Plan Assessment and Plan VT - both episodes likely occurred while the patient was sleeping overnight, thus sleep apnea cannot be excluded. No further episodes; continue presetn meds Cardiomyopathy - again I will start the patient on low-dose beta blockade. He is not a candidate for ALLEN inhibitor secondary to his renal insufficiency. - no change Acute systolic heart failure - as above. Dispo- ok for d/c from CV perspective; available PRMary Suarez MD December 11, 2016 11:47
[2016-12-11 12:05] VITALS: BP 172/79; PULSE 73; RESP 18; TEMP 97.5; O2SAT 97
[2016-12-11] MEDS ORDERED: CEFT500T3 PO (15:29)
[2016-12-11] MEDS ORDERED: CARV12.5 PO (15:29)
--- NOTE | 2016-12-11 15:49 | HHI.NPPN ---
Subjective History of Present Illness 11-year-old male with past medical history of hypertension. Ischemic heart disease, benign prostatic hypertrophy, history of hepatitis, chronic kidney disease, came to the hospital with complaint of not eating well, generalized weakness, shortness of breath. Pain increased swelling of the legs. I was called to see the patient for elevated BUN and creatinine. The patient was found to have BUN of 14, creatinine of 2.4 on admission and it has been almost same. He previously has creatinine of 1.5-1.8 this was in 2012 and 2006. Additional Remarks Patient is alert, seen in AM, not in distress, no SOB. Review of Systems General Constitutional: Fatigue Respiratory Lungs: SOB Cardiovascular Cardiac: RICHTER Objective Data Data 12/10/16 12/11/16 18:59 06:59 Intake Total 722 ml 290 ml Output Total 1050 ml 500 ml Balance -328 ml -210 ml Intake Oral 720 ml 290 ml IV Total 2 ml Output Urine Total 1050 ml 500 ml # Bowel Movements 2 0 Vital Signs Date Time Temp Pulse Resp B/P Pulse Ox O2 Delivery O2 Flow Rate FiO2 12/11/16 12:05 97.5 73 18 172/79 97 12/11/16 08:01 98.0 77 18 176/87 95 12/11/16 04:00 Room Air 12/11/16 04:00 98.0 79 18 178/82 93 12/11/16 00:00 Room Air 12/11/16 00:00 97.9 70 18 151/77 98 12/10/16 20:00 81 12/10/16 20:00 Room Air 12/10/16 20:00 98.1 87 18 198/91 98 12/10/16 16:00 Room Air 12/10/16 16:00 98.7 80 20 166/83 97 -: 12/11/16 0805 12/11/16 0805 Physical Exam General Appearance: No Acute Distress, Comfortable Eyes Eye Exam: Pupils Equal Throat Throat Exam: Oral Mucosa [place] & Moist Neck Neck Exam: Neck Supple Pulmonary Resp Exam: No Distress, Crackles, Rhonchi, Decreased Bases, Diminished Breath Sounds Cardiology CV Exam: Regular, Normal Sinus Rhythm Gastrointestinal/Abdomen GI Exam: Soft, Non-Tender, Bowel Sounds Present, Distended Neurologic Neuro Exam: Alert, Awake, Oriented Psychiatric Psych Exam: Appropriate Responses Assessment/Plan Assessment Summary: JOSE EDUARDO/Acute Renal Failure, CKD Stage IV Problem List: (1) Sepsis (2) Community acquired pneumonia (3) Elevated troponin (4) JOSE EDUARDO (acute kidney injury) (5) Stage 4 chronic kidney disease Plan Patient has been non oliguric. US kidneys noted. Urine out put is adequate. Continue antibiotics. Most likely has chronic kidney disease, due to Hypertensive or renovascular disease. Creatinine is slightly better, 2.26. Now for D/C, will need follow up in 3-4 weeks. Problem Qualifiers (1) Sepsis: Qualified Code: A41.9 - Sepsis, due to unspecified organism German Cabello MD December 11, 2016 15:49
[2016-12-11 16:19] VITALS: BP 176/84; PULSE 68; RESP 20; TEMP 97.7; O2SAT 98
[2016-12-11 22:32] LABS: ALBUMIN SPE 3.86 GM/DL (3.50-5.00); ALPHA 1 GLOBULIN 0.28 GM/DL (0.11-0.29); ALPHA 2 GLOBULIN 0.77 GM/DL (0.22-1.00); BETA GLOBULINS (SPE) 0.66 GM/DL (0.53-1.03)
[2016-12-14 03:52] LABS: MYELOPEROXIDASE LESS THAN 1.0 AI (<1.0); PROTEINASE-3 2.5 AI (<1.0)
== END 2016-12-11 15:40 | DRG 871 ==
LOC: NEPE 16:04 → NEDA 19:04 → N04B 20:42 → OBSVTOIN 12-11 10:51
PROVIDERS: ADMIT Hospitalist; ATTEND Hospitalist
DX: A41.9 Sepsis, unspecified organism (principal); J18.9 Pneumonia, unspecified organism; I47.2 Ventricular tachycardia; I50.23 Acute on chronic systolic (congestive) heart failure; N18.4 Chronic kidney disease, stage 4 (severe); N17.9 Acute kidney failure, unspecified; I42.9 Cardiomyopathy, unspecified; N13.30 Unspecified hydronephrosis; I13.0 Hypertensive heart and chronic kidney disease with heart failure and stage 1 through stage 4 chronic kidney disease, or unspecified chronic kidney disease; D69.6 Thrombocytopenia, unspecified; E86.0 Dehydration; I25.9 Chronic ischemic heart disease, unspecified; K59.00 Constipation, unspecified; N40.0 Benign prostatic hyperplasia without lower urinary tract symptoms; M17.0 Bilateral primary osteoarthritis of knee; R65.20 Severe sepsis without septic shock; F17.210 Nicotine dependence, cigarettes, uncomplicated
CPT/HCPCS: 71010; 76775; 80048; 80053; 80069; 81001; 82550; 82570; 83605; 83880; 84165; 84300; 84443; 84484; 85025; 85610; 85730; 86021; 86038; 86403; 87040; 87070; 87077; 87081; 87186; 87205; 87804; 87880; 93005; 93306; 94664; 96365; 96375; G8987-GP; G8988-GP; J0696; J1956; J2405

== ENCOUNTER 2016-12-27 18:16 | Emergency (ER) | payer MEDICARE, OTHER ==
[~2016-12-27] VITALS: Ht 177.8 cm; Wt 80.5 kg
[~2016-12-27 18:16] MED LIST changes: +CARV12.5 PO; +CEFT500T3 PO; -DORZ1SOL2 RIGHT EYE; +DORZ2SOL RIGHT EYE; -FLON0.053; +FLUT50SP EACH NARE; +FURO1TAB60 PO; -HYDR12.56 PO; -ICAPCAP PO; +LISI-515 PO; -LISI-591 PO; +OMEP20TA PO; +POTA-88 PO; -VITA100018 PO; +VITA10003 PO
[2016-12-27 18:17] VITALS: BP 183/84; PULSE 92; RESP 18; TEMP 98.2; O2SAT 92
--- NOTE | 2016-12-27 18:58 | PD ---
Physical Exam Time Seen by Provider: 18:55 Narrative 89yo M c/o not being able to urinate since about noon. Says he feels like he has to and tries, but nothing comes out. +Bladder tenderness. Patient seen in triage. VS reviewed. Awaiting bed placement. Data Data Last Documented VS Vital Signs Date Time Temp Pulse Resp B/P Pulse Ox O2 Delivery O2 Flow Rate FiO2 12/27/16 18:17 98.2 92 18 183/84 92 Room Air [facility] Supervised Visit with MARION: Veronica Welch Dec 27, 2016 18:58
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
[2016-12-27 20:04] LABS: BLOOD, URINE NEG (NEG); GLUCOSE,URINE NEG (NEG); KETONE, URINE NEG (NEG); NITRITE,URINE NEG (NEG); URINE COLOR YELLOW (YELLW/STRAW)
[2016-12-27 20:05] LABS: COMMENT (UR) CATH-CULT NOT IND; CULTURE IF INDICATED CATH CULTURE NOT IND
[2016-12-27] MEDS ORDERED: ICAPTAB PO (20:08)
[2016-12-27 20:24] LABS: BICARBONATE 23.5 MEQ/L (21.0-32.0); POTASSIUM 4.7 MEQ/L (3.5-5.1)
[2016-12-27 22:17] VITALS: BP 175/81; PULSE 80; RESP 20; O2SAT 98
== END 2016-12-27 22:44 | disposition home or self-care (01) ==
LOC: NEPC 18:16
DX: R33.9 Retention of urine, unspecified (principal); I10 Essential (primary) hypertension; Z88.0 Allergy status to penicillin
CPT/HCPCS: 51702; 80048; 81001